=== PATIENT | male | born 1935 | race Caucasian/White ===

== ENCOUNTER 2018-03-28 11:35 | Outpatient (REF) | payer MEDICARE, OTHER, SELFPAY ==
[2018-03-28 20:37] LABS: Anion Gap 8.7 mmol/L (3-11); BUN 32 mg/dL (7-18); CO2 30.3 mmol/L (21.0-32.0); CREATININE 1.32 mg/dL (0.70-1.30); Calcium 9.2 mg/dL (8.5-10.1); Chloride 103 mmol/L (98-107); Estimated GFR 52.19 (mL/min/1.73m2); Glucose 91 mg/dL (70-100); Potassium 5.2 mmol/L (3.5-5.1); Sodium 142 mmol/L (136-145)
== END 2018-03-28 11:55 ==
LOC: NCHCN 11:35
PROVIDERS: PCP Nurse Practitioner Family; Visit Provider Registered Nurse
DX: I10 Essential (primary) hypertension (principal)
CPT/HCPCS: 80048

== ENCOUNTER 2018-04-11 11:52 | Outpatient (REF) | payer MEDICARE, OTHER, SELFPAY ==
[2018-04-11 20:48] LABS: BUN 36 mg/dL (7-18); CREATININE 1.57 mg/dL (0.70-1.30); Calcium 8.9 mg/dL (8.5-10.1); Chloride 103 mmol/L (98-107); Estimated GFR 42.72 (mL/min/1.73m2); Glucose 109 mg/dL (70-100); Potassium 4.9 mmol/L (3.5-5.1); Sodium 140 mmol/L (136-145)
== END 2018-04-11 12:12 ==
LOC: NCHCN 11:52
PROVIDERS: PCP Nurse Practitioner Family; Visit Provider Nurse Practitioner Family
DX: E87.5 Hyperkalemia (principal)
CPT/HCPCS: 80048

== ENCOUNTER 2018-06-28 10:50 | Outpatient (REF) | payer MEDICARE, OTHER, SELFPAY ==
[2018-06-28 22:14] LABS: Anion Gap 6.3 mmol/L (3-11); BUN 40 mg/dL (7-18); CO2 30.7 mmol/L (21.0-32.0); CREATININE 1.35 mg/dL (0.70-1.30); Calcium 8.9 mg/dL (8.5-10.1); Chloride 107 mmol/L (98-107); Estimated GFR 50.85 (mL/min/1.73m2); Glucose 90 mg/dL (70-100); Potassium 4.4 mmol/L (3.5-5.1); Sodium 144 mmol/L (136-145)
== END 2018-06-28 11:10 ==
LOC: NCHCN 10:50
PROVIDERS: PCP Nurse Practitioner Family; Visit Provider Registered Nurse
DX: E87.5 Hyperkalemia (principal)
CPT/HCPCS: 80048

== ENCOUNTER 2018-10-18 09:59 | Outpatient (REF) | payer MEDICARE, OTHER, SELFPAY ==
[2018-10-18 22:01] LABS: BUN 36 mg/dL (7-18); CREATININE 1.32 mg/dL (0.70-1.30); Estimated GFR 52.06 (mL/min/1.73m2)
== END 2018-10-18 10:19 ==
LOC: NCHCN 09:59
PROVIDERS: PCP Registered Nurse; Visit Provider Registered Nurse
DX: I10 Essential (primary) hypertension (principal)
CPT/HCPCS: 84520; 82565

== ENCOUNTER 2019-01-09 13:27 | Outpatient (REF) | payer MEDICARE, OTHER, SELFPAY ==
[2019-01-09 22:25] LABS: Abs Immature Grans 0.02 k/cumm (0.0-0.09); Absolute Basophil Count 0.03 k/cumm (0.0-0.2); Absolute Eosinophil Count 0.13 k/cumm (0.0-0.7); Absolute Lymphocyte Count 0.98 k/cumm (1.2-3.4); Absolute Monocyte Count 0.82 k/cumm (0.11-0.7); Absolute Neutrophil Count 4.87 k/cumm (1.2-6.7); Basophils % 0.4; Eosinophils % 1.9; HCT 35.3 % (40.0-50.0); HGB 11.7 g/dL (13.5-17.5); Immature Grans % 0.3; Lymphocytes % 14.3; Mean Corp. HGB Concentration 33.1 g/dL (32.0-36.0); Mean Corpuscular Hemoglobin 34.3 pg (27.0-33.0); Mean Corpuscular Volume 103.5 fL (80-95); Mean Platelet Volume 12.3 fL (8.0-11.0); Neutrophils % 71.1; Platelet Count 113 x1000/uL (130-400); RBC 3.41 m/cumm (4.50-6.00); White Blood Cell Count 6.85 k/cumm (4.4-10.8)
[2019-01-09 22:44] LABS: ALT 120 U/L (12-78); AST 78 U/L (15-37); Albumin 3.1 g/dL (3.4-5.0); Alkaline Phosphatase 103 U/L (46-116); Anion Gap 8.8 mmol/L (3-11); BUN 62 mg/dL (7-18); Bilirubin, Total 0.6 mg/dL (0.2-1.0); CO2 23.2 mmol/L (21.0-32.0); CREATININE 2.03 mg/dL (0.70-1.30); Calcium 8.9 mg/dL (8.5-10.1); Chloride 106 mmol/L (98-107); Estimated GFR 31.68 (mL/min/1.73m2); Glucose 93 mg/dL (70-100); Magnesium 2.5 mg/dL (1.8-2.4); NT-proBNP 6052 pg/mL; Potassium 5.3 mmol/L (3.5-5.1); Sodium 138 mmol/L (136-145); TSH 2.62 uIU/mL (0.36-3.74)
[2019-01-09 23:38] LABS: Prothrombin Time 44.2 sec (9.3-11.0)
[2019-01-09 23:58] LABS: INR 4.4 (0.9-1.1)
== END 2019-01-09 13:47 ==
LOC: NCHCN 13:27
PROVIDERS: PCP Registered Nurse; Visit Provider Registered Nurse
DX: R06.09 Other forms of dyspnea (principal); I48.2 Chronic atrial fibrillation; Z79.01 Long term (current) use of anticoagulants
CPT/HCPCS: 80053; 83735; 83880; 84443; 85025; 85610

== ENCOUNTER 2019-03-12 12:03 | Outpatient (REF) | payer MEDICARE, OTHER, SELFPAY ==
[2019-03-12 20:52] LABS: Abs Immature Grans 0.01 k/cumm (0.0-0.09); Absolute Basophil Count 0.01 k/cumm (0.0-0.2); Absolute Eosinophil Count 0.08 k/cumm (0.0-0.7); Absolute Lymphocyte Count 0.56 k/cumm (1.2-3.4); Absolute Monocyte Count 0.54 k/cumm (0.11-0.7); Absolute Neutrophil Count 3.34 k/cumm (1.2-6.7); Basophils % 0.2; Eosinophils % 1.8; HCT 37.9 % (40.0-50.0); HGB 13.1 g/dL (13.5-17.5); Immature Grans % 0.2; Lymphocytes % 12.3; Mean Corp. HGB Concentration 34.6 g/dL (32.0-36.0); Mean Corpuscular Hemoglobin 35.2 pg (27.0-33.0); Mean Corpuscular Volume 101.9 fL (80-95); Mean Platelet Volume 12.6 fL (8.0-11.0); Monocytes % 11.9; Neutrophils % 73.6; RBC 3.72 m/cumm (4.50-6.00); RBC Distribution Width 16.5 % (11.8-14.1); White Blood Cell Count 4.54 k/cumm (4.4-10.8)
[2019-03-12 20:55] LABS: Prothrombin Time 27.9 sec (9.3-11.0)
[2019-03-12 20:57] LABS: INR 2.8 (0.9-1.1)
[2019-03-12 21:03] LABS: ALT 20 U/L (16-63); AST 31 U/L (15-37); Albumin 2.8 g/dL (3.4-5.0); Alkaline Phosphatase 81 U/L (46-116); Anion Gap 10.6 mmol/L (3-11); BUN 79 mg/dL (7-18); Bilirubin, Total 1.1 mg/dL (0.2-1.0); CO2 28.4 mmol/L (21.0-32.0); CREATININE 2.74 mg/dL (0.70-1.30); Calcium 9.2 mg/dL (8.5-10.1); Chloride 100 mmol/L (98-107); Estimated GFR 22.41 (mL/min/1.73m2); Glucose 104 mg/dL (70-100); Magnesium 2.3 mg/dL (1.8-2.4); Potassium 4.5 mmol/L (3.5-5.1); Sodium 139 mmol/L (136-145); Total Protein 6.4 g/dL (6.4-8.2)
[2019-03-12 21:21] LABS: NT-proBNP 8152 pg/mL
[2019-03-12 21:28] LABS: Platelet Count 70 x1000/uL (130-400)
== END 2019-03-12 12:23 ==
LOC: NCHCN 12:03
PROVIDERS: PCP Registered Nurse; Visit Provider Registered Nurse
DX: I50.9 Heart failure, unspecified (principal); N18.3 Chronic kidney disease, stage 3 (moderate); R74.8 Abnormal levels of other serum enzymes; R06.02 Shortness of breath; Z79.01 Long term (current) use of anticoagulants
CPT/HCPCS: 80053; 83735; 83880; 85025; 85610